=== PATIENT | male | born 1985 | race Caucasian/White ===

== ENCOUNTER 2019-09-08 07:26 | Emergency (ER) | payer BC, SELFPAY ==
[2019-09-08 07:35] VITALS: BP 162/91; PULSE 94; RESP 20; TEMP 36.6; O2SAT 98
--- NOTE | 2019-09-08 08:06 | ED.EAR ---
HPI - Ear Problem General Chief complaint: Ear Stated complaint: Left ear/jaw pain Time Seen by Provider: 09/08/19 07:44 History of Present Illness HPI Narrative: Left ear pain for 2 days. severe. Worse with laying on his left side and opening his mouth. Associated with muffled hearing and a small amount of drainage from the ear. Additionally noted swelling at the angle of the mandible. Feels like whe he had TMJ issues. Related Data Home Medications Medication Instructions Recorded Confirmed No Home Medications 09/08/19 09/08/19 Allergies Allergy/AdvReac Type Severity Reaction Status Date / Time No Known Allergies Allergy Verified 09/08/19 07:27 Review of Systems Constitutional: Constitutional: Denies fever(s) ENT: Denies vertigo, Denies nasal congestion and Denies sore throat Cardiovascular: Cardiovascular: Denies chest pain Respiratory: Respiratory: Denies dyspnea Gastrointestinal: Gastrointestinal: Denies nausea and Denies vomiting Neurologic: Denies headache(s), Denies numbness and Denies weakness [facility] Social History Social History (Updated 09/08/19 @ 08:19 by Chuy Shields MD) Smoking status: Current every day smoker Gender identity (if verbalized by the patient): Male Exam Const: General: no acute distress and alert Nutritional Appearance: obese Orientation/consciousness: patient oriented x3 HENMT: Ears: Abnormal EAC present erythema on the left, edema on the left, EAC tenderness on the left and otic discharge clear Eyes: Conjunctivae: conjunctivae normal Pupils: Equal, round and reactive pupils present EOM: EOMs intact bilaterally Resp: Effort & Inspection: normal respiratory effort Neuro: General: patient oriented x3, moves all extremities and CN's II-XI intact bilaterally Speech: normal speech Psych: Appearance: grossly normal Mental Status: mental status grossly normal Affect: normal affect Course Vital Signs Vital signs: Vital Signs Temperature 36.6 C 09/08/19 07:35 Pulse Rate 94 09/08/19 07:35 Respiratory Rate 09/08/19 07:35 Blood Pressure 162/91 H 09/08/19 07:35 Pulse Oximetry 98 09/08/19 07:35 Temperature 36.6 C 09/08/19 07:35 Pulse Rate 94 09/08/19 07:35 Respiratory Rate 20 09/08/19 07:35 Blood Pressure 162/91 H 07/04/20 07:35 Pulse Oximetry 98 09/08/19 07:35 Medical Decision Making Vital Signs Vital Signs: Vital Signs Temperature 36.6 C 09/08/19 07:35 Pulse Rate 94 09/08/19 07:35 Respiratory Rate 09/08/19 07:35 Blood Pressure 162/91 H 09/08/19 07:35 Pulse Oximetry 98 09/08/19 07:35 Temperature 36.6 C 09/08/19 07:35 Pulse Rate 94 09/08/19 07:35 Respiratory Rate 09/08/19 07:35 Blood Pressure 162/91 H 09/08/19 07:35 Pulse Oximetry 98 09/08/19 07:35 Discharge Plan Discharge Clinical Impression: Otitis externa Qualifiers: Otitis externa type: unspecified type Chronicity: acute Laterality: left Qualified Code(s): H60.502 - Unspecified acute noninfective otitis externa, left ear Patient Disposition: Home, Self-Care Condition: Stable Instructions: Antibiotic Form, Otitis Externa (ED) Prescriptions: No Action No Home Medications RF: 0 Follow-up/Referrals: PHYSICIAN,DOMESTIC HELPER [Primary Care Provider] - Brenden Kinney MD [Physician] -
[2019-09-08 08:38] VITALS: BP 170/101; PULSE 92; RESP 18; O2SAT 98
== END 2019-09-08 08:39 | disposition home or self-care (01) ==
PROVIDERS: Emergency Provider Emergency Medicine
DX: H60.502 Unspecified acute noninfective otitis externa, left ear (principal); F17.200 Nicotine dependence, unspecified, uncomplicated
CPT/HCPCS: 99281; A9270

== ENCOUNTER 2019-09-09 16:13 | Emergency (ER) | payer BC, SELFPAY ==
[2019-09-09 16:18] VITALS: BP 156/112; PULSE 88; RESP 18; TEMP 36.4; O2SAT 99
--- NOTE | 2019-09-09 16:23 | ED.GENADULT ---
HPI - General Adult General Chief complaint: Ear Stated complaint: Ear Infection Time Seen by Provider: 09/09/19 16:23 Source: patient Mode of arrival: ambulatory Limitations: no limitations History of Present Illness HPI narrative: 33-year-old male patient presents to the emergency department with complaints of left ear pain. Patient states he was seen here yesterday morning with same complaints and states that he was given a prescription for eardrops. Patient states he is continued the eardrops as well as taking Tylenol and ibuprofen for the pain continues to have worsening pain to the left ear. Patient denies any fevers, chest pain or shortness of breath. Patient states that pain now radiates into the left jaw. Related Data Allergies Allergy/AdvReac Type Severity Reaction Status Date / Time No Known Allergies Allergy Verified 09/09/19 16:20 Review of Systems Review of Systems: Narrative: CONSTITUTIONAL: Denies fever, chills, or sweats. EYES: Denies visual changes, redness, or discharge. ENT: Denies rhinorrhea, congestion, sore throat, positive left otalgia. CARDIOVASCULAR: Denies chest pain, palpitations, or edema. RESPIRATORY: Denies cough or dyspnea. GASTROINTESTINAL: Denies abdominal pain, nausea, vomiting, or diarrhea. GENITOURINARY: Denies dysuria or hematuria. SKIN: Denies rash or itching. MUSCULOSKELETAL: Denies back pain, joint pain, or myalgia. NEUROLOGIC: Denies headache, numbness, or weakness. PSYCHIATRIC: Denies anxiety or depression. PMFSH Social History Social History Smoking status: Current every day smoker Gender identity (if verbalized by the patient): Male Comments At the time of my signature I agree with nursing past medical history, surgical, social, and family history. There is no relevant family history pertinent to the presenting complaint. Exam Narrative: Exam Narrative: GENERAL: Well-appearing, well-nourished, and in no acute distress. HEAD: Normocephalic, atraumatic. EYES: PERRLA and EOMI. ENT: Nares clear, no rhinorrhea or epistaxis. Mucous membranes moist. Patient has swelling and yellow pus noted to the left ear canal. Unable to see the tympanic membrane in the left ear due to the significant amount of swelling. Patient also has tenderness noted to the preauricular and parotid glands on palpation. NECK: Supple. No lymphadenopathy CHEST: Clear to auscultation. No respiratory distress. HEART: Regular rate and rhythm. No murmur heard. Normal peripheral pulses. ABDOMEN: Soft, nontender, nondistended, normal active bowel sounds. EXTREMITIES: Normal range of motion. No edema. SKIN: Warm, dry, no rash. NEURO: No focal deficits. Alert and oriented x3. Course Reevaluation(s) Reevaluation #1: Reevaluated patient. Patient states that his pain does areas little bit better after receiving Toradol. Discussed with patient that we will discharge him home with an oral antibiotic and encouraged him to continue using the eardrops as prescribed to him yesterday. Discussed with him he can continue taking Tylenol and ibuprofen as needed for the pain. Patient verbalized understanding denies any other questions or concerns at this time. Date: 09/09/19 Time: 17:22 Vital Signs Vital signs: Vital Signs Temperature 36.4 C 09/09/19 16:18 Pulse Rate 88 09/09/19 16:18 Respiratory Rate 18 09/09/19 16:18 Blood Pressure 156/112 H 09/09/19 16:18 Pulse Oximetry 99 09/09/19 16:18 Temperature 36.4 C 09/09/19 16:18 Pulse Rate 88 09/09/19 16:18 Respiratory Rate 18 09/09/19 16:18 Blood Pressure 156/112 H 09/09/19 16:18 Pulse Oximetry 99 09/09/19 16:18 Vital signs reviewed. The patient has been informed that they may have pre-hypertension or Hypertension based on a BP reading in the department. I recommend that the patient call the primary care provider listed on their discharge instructions or a physician of their choice this
[2019-09-09] MEDS: KETOROLAC (*BKC) 60 MG/2 ML VIAL IM (16:47)
[2019-09-09] MEDS: AMOXICILLIN 500 MG CAPSULE 1000 MG PO (16:51)
[2019-09-09 17:31] VITALS: BP 161/105; PULSE 86; RESP 16; O2SAT 96
== END 2019-09-09 17:32 | disposition home or self-care (01) ==
PROVIDERS: Emergency Provider Nurse Practitioner Family
DX: H60.392 Other infective otitis externa, left ear (principal)
CPT/HCPCS: 96372; 99283; A9270; J1885

== ENCOUNTER → 2022-06-30 14:14 | Outpatient (CLI) | payer OTHER, SELFPAY ==
--- NOTE | ~2022-06-30 | XR_ITS ---
EXAMINATION: XR chest 2V Exam Date/Time: 06/30/2022 14:25 CDT HISTORY: SMOKER X 2O YEARS Comparison: None available. RESULT: Lines, tubes, and devices: None. Lungs and pleura: Clear. Cardiomediastinal silhouette: Unremarkable. Other: No acute osseous or upper abdominal finding. IMPRESSION: No acute cardiopulmonary process. Reviewed, dictated and finalized at location K.
== END ==
PROVIDERS: PCP Emergency Medicine; Visit Provider Emergency Medicine
DX: F17.210 Nicotine dependence, cigarettes, uncomplicated (principal)
CPT/HCPCS: 71046